=== PATIENT | male | born 1975 | race African-American/Black ===

== ENCOUNTER 2022-04-16 11:32 | Emergency (ER) | payer SELFPAY ==
[2022-04-16] MEDS ORDERED: Iopamidol-370 76% 500 ML 1 ML ONE (11:48)
[2022-04-16 13:04] LABS: Reflex for Review?? YES
[2022-04-16 13:05] LABS: #Eosinphils 0.2 thou/uL (0.0-0.7); #Lymphocytes 1.3 thou/uL (1.20-3.40); #Monocytes 0.7 thou/uL (0.11-0.59); #Neutrophils 8.3 thou/uL (1.40-6.50); %Basophils 0.1 % (0.0-1.0); %Eosinophils 1.9 % (0.0-10.0); %Monocytes 6.8 % (0.0-10.0); %Neutrophils 79.2 % (42.0-75.0); Hemoglobin 7.3 g/dL (14.0-18.0); Mean Corpuscular HGB CONC 29.3 g/dL (32.0-36.0); Mean Corpuscular Hemoglobin 16.3 pg (27.0-31.0); Mean Corpuscular Volume 55.5 fL (78.0-98.0); Platelet Count 630 thou/uL (130-400); RBC Distribution Width 22.1 % (11.5-14.5); White Blood Cell (WBC) Count 10.4 thou/uL (4.8-10.8)
[2022-04-16 13:23] LABS: Anisocytosis MODERATE=16-30 cells (100X) (0-5/hpf); Hypochromia SLIGHT = 6-15 cells (100X) (0-5/hpf); MDiff Complete? YES; Microcytosis MODERATE=15-30 cells (100X) (0-5/hpf); Ovalocytes SLIGHT = 2-5 cells (100X) (0-1/hpf); Platelet Morphology Comment Appears Increased; Polychromasia SLIGHT = 2-3 cells (100X) (0-2/hpf); Target Cells MARKED = >16 cells (100X) (0-1/hpf)
[2022-04-16 13:24] LABS: ALT (SGPT) 8 U/L (8-55); AST (SGOT) 10 U/L (5-34); Albumin 2.7 g/dL (3.5-5.0); Alkaline Phosphatase 76 U/L (40-110); Anion Gap 10 mmol/L (10-20); BUN (Urea Nitrogen) 6 mg/dL (8.9-20.6); Bilirubin, Total 0.3 mg/dL (0.2-1.2); Calc. Creatinine Clearance 0 mL/min (70-130); Calcium 8.4 mg/dL (7.8-10.44); Carbon Dioxide 27 mmol/L (22-29); Chloride 102 mmol/L (98-107); Estimated GFR 108; Glucose 108 mg/dL (70-105); Potassium 4.3 mmol/L (3.5-5.1); Protein, Total 8.7 g/dL (6.0-8.3); Sodium 135 mmol/L (136-145)
[2022-04-16] MEDS ORDERED: Clindamycin/D5W 900 mg/50 ml Premix Bag ONE (15:16)
[2022-04-16] MEDS ORDERED: Clindamycin/D5W 900 MG in Premix Bag 1 BAG IVPB SCH (15:30)
[2022-04-16 16:34] VITALS: BMI 40.2
[2022-04-16 17:46] LABS: SARS-CoV-2 NAA Rapid Test Not Detected (NotDetected)
== END 2022-04-16 19:41 | disposition home or self-care (01) ==
LOC: ERS 11:32 → UNDOADMOB 15:31 → ERHOLD 15:31 → UNDODISOB 19:41
DX: L02.31 Cutaneous abscess of buttock (principal); L73.2 Hidradenitis suppurativa; D64.9 Anemia, unspecified
CPT/HCPCS: 36415; 36430; 72193; 80053; 85025; 85060; 86850; 86900; 86901; 87040; 96365; J3490; P9016; Q9967

== ENCOUNTER 2024-08-03 00:06 | Emergency (ER) | payer BC, OTHER, SELFPAY ==
[2024-08-03 00:28] LABS: #Basophils 0.03 10x3/uL (0.0-0.2); %Basophils 0.2 % (0.0-1.0); %Eosinophils 2.6 % (0.0-10.0); %Lymphocytes 7.3 % (21.0-51.0); %Monocytes 9.8 % (0.0-10.0); %Neutrophils 79.8 % (42.0-75.0); Hemoglobin 8.4 g/dL (14.0-18.0); Mean Corpuscular HGB CONC 31.1 g/dL (32.0-36.0); Mean Corpuscular Volume 60.9 fL (78.0-98.0); Mean Platelet Volume 8.9 fL (7.4-10.4); Platelet Count 436 10x3/uL (130-400); RBC Distribution Width 21.1 % (11.5-14.5); Red Blood Cell (RBC) Count 4.43 mill/uL (4.70-6.10)
[2024-08-03 00:43] LABS: ALT (SGPT) 14 U/L (8-55); Alkaline Phosphatase 67 U/L (40-110); Anion Gap 11 mmol/L (10-20); BUN (Urea Nitrogen) 16 mg/dL (8.9-20.6); Bilirubin, Total 0.2 mg/dL (0.2-1.2); Calc. Creatinine Clearance 0 mL/min (70-130); Calcium 8.2 mg/dL (7.8-10.44); Carbon Dioxide 27 mmol/L (22-29); Chloride 102 mmol/L (98-107); Estimated GFR 95; Globulin 6.7 g/dL (2.4-3.5); Glucose 162 mg/dL (70-105); Lipase 13 U/L (8-78); Potassium 3.8 mmol/L (3.5-5.1); Protein, Total 8.7 g/dL (6.0-8.3); Sodium 136 mmol/L (136-145)
[2024-08-03 00:48] LABS: Anisocytosis SLIGHT = 6-15 cells HPF (0-5); Hypochromia SLIGHT = 6-15 cells HPF (0-5); Microcytosis MODERATE=15-30 cells HPF (0-5); Platelet Adequacy Comment Platelets Normal; Polychromasia SLIGHT = 2-3 cells HPF (0-2); Target Cells SLIGHT = 2-5 cells HPF (0-1)
[2024-08-03] MEDS ORDERED: fentaNYL 50 mcg/mL 1 mL Vial ONE (01:15)
[2024-08-03 01:19] LABS: Bacteria/HPF None Seen HPF (None Seen); Bilirubin Negative (Negative); Blood, Urine Trace (Negative); CAUTI Indications for Culture Pelvic or flank pain; Clarity Clear (Clear); Glucose, Urine (Dipstick) Normal (Negative); Ketone, Urine Negative (Negative); Leukocyte Negative Leu/uL (Negative); Nitrite Negative (Negative); Protein, Urine (Dipstick) Negative (Neg-Trace); RBC/HPF 0-3 HPF (0-3); Squamous Epithelial 0-3 HPF (0-3); Urobilinogen Normal mg/dL (Less than 2); WBC/HPF 0-3 HPF (0-3); pH, Urine 5.5 (5.0-9.0)
[2024-08-03 01:30] LABS: Urine Culture Reflex No No
[2024-08-03 01:43] LABS: AST (SGOT) 37 U/L (5-34)
[2024-08-03] MEDS ORDERED: Morphine 4 MG/ML VIAL ONE ×2 (02:14→07:42)
[2024-08-03] MEDS ORDERED: Ketorolac Tromethamine 30 MG (1 mL) VIAL ONE (07:42)
== END 2024-08-03 07:59 | disposition home or self-care (01) ==
LOC: ERS 00:06
DX: M25.512 Pain in left shoulder (principal); M54.2 Cervicalgia; I10 Essential (primary) hypertension; V48.5XXA Car driver injured in noncollision transport accident in traffic accident, initial encounter; Y93.89 Activity, other specified; Y92.410 Unspecified street and highway as the place of occurrence of the external cause
CPT/HCPCS: 70450; 71045; 72125; 72128; 80053; 81001; 83605; 83690; 85025; 86850; 86900; 86901; 96374; 96375; 96376; J1885; J2272; J3010